=== PATIENT | female | born 1990 | race Caucasian/White ===

== ENCOUNTER 2019-06-04 07:47 | Inpatient (IN) ==
--- NOTE | 2019-06-04 08:01 | Emergency Department Note ---
Disposition Clinical Impression: Pyelonephritis Disposition: Admitted As Inpatient Condition: Fair Referrals: NONE,PCP [Primary Care Provider] - Time of Disposition: 08:45 Female Urogenital HPI - General Chief complaint: ED Urogenital-Female Stated complaint: freq urination, back pain, fever Time Seen by Provider: 06/04/19 07:56 Source: patient Mode of arrival: private vehicle Limitations: no limitations Nursing Notes Reviewed: Yes Vital Signs Reviewed: Yes - History of Present Illness HPI Narrative: Patient presents saying she is been having pain in the bilateral low back is midline for about 4 days. This is described as sharp and aching in character and not much making it better or worse. With this she has had frequent urination and is urinating in small aliquots. She denies dysuria or hematuria but she does have urgency. She has had some nausea and vomiting last 24 hours of decreased oral intake. With this she has some generalized weakness and malaise. She has a feeling of fevers and chills but has not checked her temperature. She has had occasional sweats. She denies cough, congestion, chest pain or shortness of breath. She has diarrhea or constipation. She states she has had similar pain with a remote kidney stone and also history of kidney infection in the past. Pt Subjective Complaint: dysuria, "UTI", other (Possible kidney stone) Onset (ago): day(s) (4) Severity: moderate, severe Quality: sharp, aching Duration: constant Improves with: none Worsens with: urination Urinary Symptoms: urgency, frequency, no dysuria, no hematuria, no foul smelling urine, no difficulty urinating, no flank pain : no Associated symptoms: Reports: nausea/vomiting, fever/chills, loss of appetite, weakness. Denies: abnormal vaginal discharge, abnormal vaginal bleeding, abdominal pain, headaches, , rash, seizure, shortness of breath, syncope - Related Data Home Medications Medication Instructions Recorded Confirmed No Known Home Drugs 06/04/19 06/04/19 Allergies Allergy/AdvReac Type Severity Reaction Status Date / Time Amoxicillin AdvReac Hives Verified 06/04/19 07:49 codeine AdvReac Hives Verified 06/04/19 07:49 All systems ED: reviewed and negative except as stated. Past Medical History - Past Medical History Attestation: Yes The following information was validated with the patient. Source: patient, old records reviewed, obtained from family, nursing notes reviewed Medical history: Reports: no medical history Surgical history: Reports: , cholecystectomy, herniorrhaphy Psychiatric history: Reports: anxiety, panic disorder [employer] history: Reports: bilateral tubal ligation - Social History Smoking Status: 2nd Hand Smoke Exposure Smokeless Tobacco Status: No Alcohol use: Reports: none Drug use: Reports: methamphetamine Physical Exam - General Limitations: no limitations General appearance: alert, anxious, in distress - Head Head exam: atraumatic, normocephalic, normal inspection - Eye Eye exam: Present: normal appearance, PERRL, EOMI - ENT ENT exam: normal exam, normal oropharynx, mucous membranes moist - Neck Neck exam: Present: normal inspection, full ROM, trachea midline - Chest Chest inspection: Present: normal inspection, symmetric chest wall rise - Respiratory Respiratory exam: Present: normal lung sounds bilaterally. Absent: respiratory distress, wheezes, prolonged expiratory phase - Cardiovascular Cardiovascular exam: Present: regular rate, normal rhythm, normal heart sounds - Abdominal Exam Abdominal exam: Present: soft, Non-Tender, normal bowel sounds. Absent: tenderness, distention, guarding, rebound, rigidity - Extremities Exam Extremities exam: Present: normal inspection, full ROM, normal capillary refill. Absent: tenderness, pedal edema - Expanded Lower Extremity Exam Neurovascular/Tendon exam: Present: normal capillary refill Gait: antalgic - Back Exam Back exam: Present: normal inspection, full ROM, CVA tenderness (L). Absent: tenderness, CVA tenderness (R) - Neurological Exam Neurological exam: Present: alert, oriented X3 - Psychiatric Psychiatric exam: Present: agitated, anxious - Skin Skin exam: Present: warm, dry, intact, normal color. Absent: diaphoresis, pallor Course Course Narrative: Given his reported severe pain, nausea and vomiting with tachycardia, patient is started on IV fluids and baseline laboratory and urinalysis been ordered. She will have a CT of the abdomen to evaluate for structural abnormality in receive Toradol, Haldol and Benadryl for pain and anxiolysis. 0845: Patient continues with pain, has significant leukocytosis and pyelonephritis. I recommended continuation of IV fluids and IV antibiotics on observation status. The patient is agreeable. I discussed this with Dr. Carpenter and verbal orders have been obtained for her observation. Vital Signs Temperature 98 F 06/04/19 07:50 Pulse Rate 123 06/04/19 07:50 Respiratory Rate 16 06/04/19 07:50 Blood Pressure 140/98 06/04/19 07:50 O2 Sat by Pulse Oximetry 98 06/04/19 07:50 Temperature 98 F 06/04/19 07:50 Pulse Rate 92 06/04/19 08:47 Respiratory Rate 16 06/04/19 08:47 Blood Pressure 120/75 06/04/19 08:47 O2 Sat by Pulse Oximetry 96 06/04/19 08:47 Oxygen Delivery Oxygen Delivery Room Air Urogenital-Female - Differential Diagnosis Likely: urinary tract infection, cystitis - Lab Data Lab results reviewed: Yes I reviewed the patient's lab results. Result diagrams: 06/04/19 08:16 06/04/19 08:16 Lab Results 06/04/19 06/04/19 06/04/19 Range/Units 08:00 08:00 08:00 WBC (4.3-11.1) K/mcL RBC (3.82-4.97) M/mcL Hgb (11.5-15.4) g/dL Hct (35.3-44.9) % MCV (83.0-100.0) fL MCH (28.0-33.3) pg MCHC (31.6-35.5) g/dL RDW (11.5-14.5) % Plt Count (140-400) K/mcL MPV (9.4-12.4) fL Immature Gran % (0-4) % Seg Neutrophils % % Lymphocytes % % Monocytes % % Eosinophils % % Basophils % % Neutrophils # (1.6-8.9) K/mcL Lymphocytes # (0.6-4.6) K/mcL Monocytes # (0.0-1.3) K/mcL Eosinophils # (0.0-0.6) K/mcL Basophils # (0.0-0.2) K/mcL Sodium (136-145) mEq/L Potassium (3.5-5.1) mEq/L Chloride (98-107) mEq/L Carbon Dioxide (23-29) mEq/L BUN (6-20) mg/dL Creatinine (0.60-1.20) mg/dL Est GFR ( Amer) (> 60) Est GFR (Non-Af Amer) (> 60) BUN/Creatinine Ratio (6-26) Glucose (70-105) mg/dL Calculated Osmolality (280-300) Calcium (8.6-10.3) mg/dL Urine Color Yellow (Yellow) Urine Clarity Clear (Clear) Urine pH 5.5 (5.0-8.0) pH Units Ur Specific [place] 1.025 (1.010-1.025) Urine Protein 100 H (Neg-Trace) mg/dL Urine Glucose (UA) Normal (Normal) mg/dL Urine Ketones Negative (Negative) mg/dL Urine Blood Moderate H (Negative) Urine Nitrite Negative (Negative) Urine Bilirubin Negative (Negative) Urine Urobilinogen Normal (Normal) mg/dL Ur Leukocyte Esterase Small H (Negative) Urine Microscopic RBC 5-15 H (0-3) per hpf Urine Microscopic WBC TNTC H (0-3) per hpf Ur Squamous Epith Cells Few (None-Few) per lpf Urine Bacteria Many H (None-Few) per hpf Urine Mucus Many H (Few) Ur Culture Indicated? YES A (NO) Urine Test Negative (Negative) Urine Opiates Screen Positive H (Vrysys=824) ng/mL Ur Buprenorphine Scrn Negative (Cutoff=5) ng/mL Ur Oxycodone Screen Negative (Cutoff= 100) ng/mL Ur Barbiturates Screen Negative (Knwexf=828) ng/mL Ur Phencyclidine Scrn Negative (Cutoff=25) ng/mL Ur Amphetamines Screen Positive H (Gzdjxl=1548) ng/mL U Benzodiazepines Scrn Negative (Xcfgzo=210) ng/mL Urine Cocaine Screen Negative (Cutoff= 300) ng/mL U Marijuana (THC) Screen Negative (Cutoff = 50) ng/mL Ur Drug Screen Interp See Below 06/04/19 06/04/19 Range/Units 08:16 08:16 WBC 19.7 H (4.3-11.1) K/mcL RBC 4.21 (3.82-4.97) M/mcL Hgb 13.7 (11.5-15.4) g/dL Hct 37.8 (35.3-44.9) % MCV 89.8 (83.0-100.0) fL MCH 32.5 (28.0-33.3) pg MCHC 36.2 H (31.6-35.5) g/dL RDW 12.1 (11.5-14.5) % Plt Count 243 (140-400) K/mcL MPV 10.0 (9.4-12.4) fL Immature Gran % 0.5 (0-4) % Seg Neutrophils % 84.1 % Lymphocytes % 5.1 % Monocytes % 9.8 % Eosinophils % 0.2 % Basophils % 0.3 % Neutrophils # 16.6 H (1.6-8.9) K/mcL Lymphocytes # 1.0 (0.6-4.6) K/mcL Monocytes # 1.9 H (0.0-1.3) K/mcL Eosinophils # 0.0 (0.0-0.6) K/mcL Basophils # 0.1 (0.0-0.2) K/mcL Sodium 135 L (136-145) mEq/L Potassium 3.3 L (3.5-5.1) mEq/L Chloride 100 (98-107) mEq/L Carbon Dioxide 26 (23-29) mEq/L BUN 18 (6-20) mg/dL Creatinine 1.13 (0.60-1.20) mg/dL Est GFR ( Amer) > 60 (> 60) Est GFR (Non-Af Amer) 57 L (> 60) BUN/Creatinine Ratio 16 (6-26) Glucose 169 H (70-105) mg/dL Calculated Osmolality 286 (280-300) Calcium 9.1 (8.6-10.3) mg/dL Urine Color (Yellow) Urine Clarity (Clear) Urine pH (5.0-8.0) pH Units Ur Specific [place] (1.010-1.025) Urine Protein (Neg-Trace) mg/dL Urine Glucose (UA) (Normal) mg/dL Urine Ketones (Negative) mg/dL Urine Blood (Negative) Urine Nitrite (Negative) Urine Bilirubin (Negative) Urine Urobilinogen (Normal) mg/dL Ur Leukocyte Esterase (Negative) Urine Microscopic RBC (0-3) per hpf Urine Microscopic WBC (0-3) per hpf Ur Squamous Epith Cells (None-Few) per lpf Urine Bacteria (None-Few) per hpf Urine Mucus (Few) Ur Culture Indicated? (NO) Urine Test (Negative) Urine Opiates Screen (Ygydib=982) ng/mL Ur Buprenorphine Scrn (Cutoff=5) ng/mL Ur Oxycodone Screen (Cutoff= 100) ng/mL Ur Barbiturates Screen (Rndqlr=183) ng/mL Ur Phencyclidine Scrn (Cutoff=25) ng/mL Ur Amphetamines Screen (Gwmqyk=1916) ng/mL U Benzodiazepines Scrn (Cjrirr=372) ng/mL Urine Cocaine Screen (Cutoff= 300) ng/mL U Marijuana (THC) Screen (Cutoff = 50) ng/mL Ur Drug Screen Interp - Radiology Data Radiology results reviewed: Yes I reviewed the patient's radiology results. Impressions Abdomen/Pelvis CT 06/04/19 08:34 IMPRESSION: 1. Mildly hyperdense renal pyramids, with punctate nonobstructing stone involving the upper pole of the left kidney. Currently, no evidence of ureterolithiasis or significant hydronephrosis. 2. There is mild asymmetric perinephric fat stranding on the left. This could indicate a recently passed ureteral stone or ascending urinary tract infection. 3. Incidental note is made of mild position of tubal ligation clips, which both appear to be present along the right side of the cul-de-sac D/ / Real Carnes MD / Real Carnes MD Interpreting Provider: Real Carnes MD
[2019-06-04] MEDS ORDERED: Ketorolac 30 MG/ML VIAL IVP ONE (08:02)
[2019-06-04] MEDS ORDERED: 0.9 % Sodium Chloride 1,000 ML IVC ONE (08:02)
[2019-06-04] MEDS ORDERED: Haloperidol Lactate 5 MG/ML VIAL IVP ONE (08:02)
[2019-06-04 08:07] LABS: Bilirubin,Urine Negative (Negative); Blood,Urine Moderate (Negative); Clarity,Urine Clear (Clear); Color,Urine Yellow (Yellow); Glucose,Urine (UA) Normal (Normal); Ketones,Urine Negative (Negative); Leukocyte Esterase,Urine Small (Negative); Nitrite,Urine Negative (Negative); PH,Urine 5.5 pH Units (5.0-8.0); Protein,Urine 100 mg/dL (Neg-Trace); Specific Gravity,Urine 1.025 (1.010-1.025); Urobilinogen,Urine Normal (Normal)
[2019-06-04 08:15] LABS: Bacteria,Urine Many per hpf (None-Few); Squamous Epithelial Cell,Urine Few per lpf (None-Few); WBC,Urine TNTC per hpf (0-3)
[2019-06-04 08:16] LABS: Mucus,Urine Many (Few)
[2019-06-04 08:22] LABS: Basophils # 0.1 K/mcL (0.0-0.2); Basophils % 0.3 %; Eosinophils % 0.2 %; Hematocrit 37.8 % (35.3-44.9); Hemoglobin 13.7 g/dL (11.5-15.4); Immature Granulocytes % 0.5 % (0-4); Lymphocytes % 5.1 %; Mean Corpuscular HGB Conc 36.2 g/dL (31.6-35.5); Mean Corpuscular Hemoglobin 32.5 pg (28.0-33.3); Mean Corpuscular Volume 89.8 fL (83.0-100.0); Monocytes # 1.9 K/mcL (0.0-1.3); Monocytes % 9.8 %; Neutrophils # 16.6 K/mcL (1.6-8.9); Platelet Count 243 K/mcL (140-400); Red Blood Count 4.21 M/mcL (3.82-4.97); Red Cell Distribution Width 12.1 % (11.5-14.5); Segmented Neutrophils % 84.1 %; White Blood Count 19.7 K/mcL (4.3-11.1)
[2019-06-04] MEDS ORDERED: cefTRIAXone 2,000 MG in 0.9 % Sodium Chloride Mini Bag 100 ML IVPB ONE (08:26)
[2019-06-04 08:29] LABS: Amphetamine Screen,Urine Positive ng/mL (Cutoff=1000); Barbiturate Screen,Urine Negative ng/mL (Cutoff=200); Benzodiazepines Screen,Urine Negative ng/mL (Cutoff=200); Cannabinoid Screen,Urine Negative ng/mL (Cutoff = 50); Cocaine Screen,Urine Negative ng/mL (Cutoff= 300); Opiate Screen,Urine Positive ng/mL (Cutoff=300); Phencyclidine Screen,Urine Negative ng/mL (Cutoff=25)
[2019-06-04 08:39] LABS: BUN/Creatinine Ratio 16 (6-26); Blood Urea Nitrogen 18 mg/dL (6-20); Calcium 9.1 mg/dL (8.6-10.3); Carbon Dioxide 26 mEq/L (23-29); Chloride 100 mEq/L (98-107); Glucose 169 mg/dL (70-105); Osmolality,Calculated 286 (280-300); Potassium 3.3 mEq/L (3.5-5.1); Sodium 135 mEq/L (136-145); eGFR For African Americans > 60 (> 60); eGFR For Non-African Americans 57 (> 60)
[2019-06-04] MEDS ORDERED: Ibuprofen 400 MG TABLET PO PRN (09:14)
[2019-06-04] MEDS ORDERED: Acetaminophen 325 MG TABLET PO PRN (09:14)
[2019-06-04] MEDS ORDERED: Mag Hydrox/Al Hydrox/Simeth 30 ML UDC PO PRN (09:14)
[2019-06-04] MEDS ORDERED: MOM Conc 10 ML UD.LIQ PO PRN (09:14)
[2019-06-04] MEDS ORDERED: *HR* Promethazine 25 MG/ML VIAL IVP PRN ×2 (09:14→11:54)
[2019-06-04] MEDS ORDERED: Ondansetron 4 MG/2 ML VIAL IVP PRN ×2 (09:14→11:54)
[2019-06-04] MEDS ORDERED: 0.9 % Sodium Chloride 1,000 ML IVC SCH (09:14)
[2019-06-04] MEDS ORDERED: Naloxone 0.4 MG/ML INJ IVP PRN (09:14)
[2019-06-04] MEDS ORDERED: Ketorolac 30 MG/ML VIAL IVP PRN (09:14)
[2019-06-04] MEDS ORDERED: ALPRAZolam 0.25 MG TABLET PO PRN (11:51)
--- NOTE | 2019-06-04 11:59 | Internal Med History&Physical ---
Date of Encounter: 06/04/19 Time of Encounter: 11:30 Assessment and Plan (1) Pyelonephritis Current visit: Yes Status: Acute IV Rocephin has been started. Lactobacillus will be given. Bactrim DS will be added pending urine culture final report. (2) Hypokalemia Current visit: Yes Status: Acute Likely secondary to vomiting. IV fluids with supplemental potassium have been ordered. (3) Illicit drug use Current visit: Yes Status: Acute She will be given anti-emetics and anti-anxiety medication as needed. Internal Medicine - H&P: HPI Chief complaint: Back pain, fevers, chills, vomiting Admitted From: Emergency Dept Plans for Post Hospital Care: Home History of present illness: Ms. Santos is a 29 year old female who came to emergency room stating she had 4 day history of fevers chills vomiting and urinary frequency. She was evaluated and found to have evidence of left pyelonephritis. She was admitted to [facility] floor for ongoing care needs. She states she has had several urinary tract infections in the past. She has history of kidney stones but has not had stone analysis. She denies other kidney or bladder disorders. history is pertinent otherwise for 4 sections and tubal ligation. Past Med Surg Social Fam HX - Past Medical History Medical history: no medical history Additional medical history: heart palpatations Psychiatric history: anxiety, panic disorder - Past Surgical History Surgical History: , cholecystectomy, herniorrhaphy Additional surgical history: Cysts from left wrist. cyst removed from right side of neck. tubal ligation - Social History Smoking Status: 2nd Hand Smoke Exposure Smokeless Tobacco Status: No Alcohol use: none Drug use: methamphetamine Internal Medicine - H&P: Meds No Known Home Drugs 06/04/19 [History] Allergy/AdvReac Type Severity Reaction Status Date / Time Amoxicillin AdvReac Hives Verified 06/04/19 07:49 codeine AdvReac Hives Verified 06/04/19 07:49 All Systems PM: A 10-system review of systems was performed and is negative for pertinent findings except as documented above in the HPI. Review of systems: Gen.: She states her weight has been stable for several months Cardiovascular: She denies hypertension NE heart failure angina DVT or pulmonary embolus Respiratory: She is a lifelong nonsmoker. She reports a diagnosis of asthma. She does not use home oxygen. GI: She has had cholecystectomy. 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 She does not know the seizure type and has not seen a neurologist or other physician in many years. She denies other neurologic disorders. Endocrine: She denies diabetes thyroid disease or hyperlipidemia Hematology/oncology: She denies blood disorders cancers or anemia Psychiatric: She denies anxiety depression or other mental health issues [place] skeletal: She reports having a cyst removed from her left wrist. She denies arthritis gout or other bone joint or muscle disorders - Constitutional Vitals: Temp Pulse Resp BP Pulse Ox 98.7 F 89 16 97/68 99 06/04/19 09:35 06/04/19 09:35 06/04/19 09:35 06/04/19 09:35 06/04/19 09:35 Exam: Neuro: She is a well-developed well-nourished female lying in bed who appears in mild discomfort. She is in the position under the covers and appears to have chills. HEENT: Head is atraumatic and normocephalic. Eyes: EOMI. There is no scleral icterus. Mouth: Mucosa is moist. Neck: Supple and nontender. There is no thyromegaly or adenopathy noted. Heart: Regular without murmurs gallops or ectopics Lungs: No wheezes or crackles are heard. Abdomen: Soft and nontender. No masses or guarding are noted. Extremities: She is wearing house shoes/boots which I did not remove. There is no pitting edema of her lower legs. Neurologic: Mental status: She is able to answer questions appropriately but is not conversational. She appears to be in mild discomfort and having chills. Cranial nerves: Smile is symmetric. Forehead wrinkles bilaterally. Tongue protrudes midline. EOMI. Motor: There is no pronator drift. Cerebellar: Finger to nose is intact bilaterally. Skin: Warm and dry Internal Med - H&P Results - Labs CBC & Chem 7: 06/04/19 08:16 06/04/19 08:16 Labs: Short CBC 06/04/19 Range/Units 08:16 WBC 19.7 H (4.3-11.1) K/mcL Hgb 13.7 (11.5-15.4) g/dL Hct 37.8 (35.3-44.9) % Plt Count 243 (140-400) K/mcL Neutrophils # 16.6 H (1.6-8.9) K/mcL BMP 06/04/19 08:16 Sodium 135 L Potassium 3.3 L Chloride 100 Carbon Dioxide 26 BUN 18 Creatinine 1.13 Glucose 169 H Calcium 9.1 Urine 06/04/19 Range/Units 08:00 Urine Color Yellow (Yellow) Urine Clarity Clear (Clear) Urine pH 5.5 (5.0-8.0) pH Units Ur Specific [place] 1.025 (1.010-1.025) Urine Protein 100 H (Neg-Trace) mg/dL Urine Glucose (UA) Normal (Normal) mg/dL - Impressions ITS Impressions Abdomen/Pelvis CT 06/04/19 08:34 IMPRESSION: 1. Mildly hyperdense renal pyramids, with punctate nonobstructing stone involving the upper pole of the left kidney. Currently, no evidence of ureterolithiasis or significant hydronephrosis. 2. There is mild asymmetric perinephric fat stranding on the left. This could indicate a recently passed ureteral stone or ascending urinary tract infection. 3. Incidental note is made of malposition of tubal ligation clips, which both appear to be present along the right side of the cul-de-sac. D/ / 06/04/2019 09:20:01 Real Carnes MD / claudiaay Interpreting Provider: Real Carnes MD
[2019-06-04] MEDS: Sulfamethoxazole/Trimeth DS 1 EACH TABLET PO SCH ×2 (13:00→20:30)
[2019-06-04] MEDS: 0.9 % Sodium Chloride w KCl 20 MEQ/1,000 ML MLS IVC SCH ×2 (13:01→20:30)
[2019-06-04] MEDS: Lactobacillus 1 EACH CAP.SPRINK PO SCH (20:29)
[2019-06-05] MEDS: 0.9 % Sodium Chloride w KCl 20 MEQ/1,000 ML MLS IVC SCH (03:46)
[2019-06-05 05:02] LABS: Basophils % 0.3 %; Eosinophils # 0.1 K/mcL (0.0-0.6); Eosinophils % 0.8 %; Hematocrit 30.5 % (35.3-44.9); Hemoglobin 10.6 g/dL (11.5-15.4); Immature Granulocytes % 0.8 % (0-4); Lymphocytes # 0.9 K/mcL (0.6-4.6); Lymphocytes % 8.2 %; Mean Corpuscular HGB Conc 34.8 g/dL (31.6-35.5); Mean Corpuscular Hemoglobin 31.5 pg (28.0-33.3); Mean Corpuscular Volume 90.8 fL (83.0-100.0); Mean Platelet Volume 10.5 fL (9.4-12.4); Monocytes # 1.2 K/mcL (0.0-1.3); Monocytes % 10.3 %; Neutrophils # 9.1 K/mcL (1.6-8.9); Platelet Count 158 K/mcL (140-400); Red Blood Count 3.36 M/mcL (3.82-4.97); Red Cell Distribution Width 12.5 % (11.5-14.5); Segmented Neutrophils % 79.6 %; White Blood Count 11.4 K/mcL (4.3-11.1)
[2019-06-05 05:21] LABS: Alanine Aminotransferase 14 Units/L (7-52); Albumin 2.8 g/dL (3.5-5.7); Albumin/Globulin Ratio 1.2 (1.1-2.2); Alkaline Phosphatase 78 Units/L (34-104); Aspartate Amino Transferase 15 Units/L (13-39); BUN/Creatinine Ratio 16 (6-26); Bilirubin,Total 0.5 mg/dL (0.3-1.0); Blood Urea Nitrogen 13 mg/dL (6-20); Calcium 7.7 mg/dL (8.6-10.3); Carbon Dioxide 20 mEq/L (23-29); Chloride 113 mEq/L (98-107); Globulin 2.4 g/dL (2.4-3.5); Glucose 135 mg/dL (70-105); Osmolality,Calculated 290 (280-300); Potassium 3.6 mEq/L (3.5-5.1); Sodium 139 mEq/L (136-145); Total Protein 5.2 g/dL (6.4-8.9); eGFR For African Americans > 60 (> 60); eGFR For Non-African Americans > 60 (> 60)
[2019-06-05 06:47] VITALS: BP 127/84
[2019-06-05] MEDS: Lactobacillus 1 EACH CAP.SPRINK PO SCH (08:33)
[2019-06-05] MEDS: Sulfamethoxazole/Trimeth DS 1 EACH TABLET PO SCH (08:33)
[2019-06-05] MEDS ORDERED: cefTRIAXone 2,000 MG in 0.9 % Sodium Chloride Mini Bag 100 ML IVPB SCH (09:00)
--- NOTE | 2019-06-05 09:55 | Discharge Summary ---
Orders not resulted at time of discharge: Pending orders 06/04/19 08:00 Culture,Urine [RM] Stat Date of Encounter: 06/05/19 Time of Encounter: 09:35 - Discharge Diagnosis (1) Pyelonephritis Priority: Primary Status: Acute (2) Hypokalemia Priority: Secondary Status: Resolved (3) Illicit drug use Priority: Secondary Status: Acute Hospital course: Ms. Santos is a 29 year old female who came to emergency room stating she had 4 day history of fevers chills vomiting and urinary frequency. She was evaluated and found to have evidence of left pyelonephritis. She was admitted to [facility] floor for ongoing care needs. I saw her on April 03 and performed a history and physical. She was started on IV Rocephin with lactobacillus. Oral Bactrim DS was added pending final culture report. She had fever spike to 101.5 the afternoon of June 04. When I saw her on June 05 she stated she felt better and wished to be discharged home. I explained to her I felt she needed additional IV antibiotics. She was adamant she was leaving. I told her she would have to sign out AMA. She agreed to this. She will be given prescriptions for Omnicef and Septra DS with lactobacillus for 7 days. Hemoglobin decreased to 10.6 on June 05. I told her she was anemic but she refused to stay for further evaluation. - Time Spent with Patient Total time spent providing and/or coordinating discharge services: - Discharge Medications Prescriptions: New Sulfamethoxazole/Trimeth DS [Bactrim Ds] 1 each PO BID #14 tablet Lactobacillus [Culturelle] 1 each PO BID #14 cap.sprink Cefdinir [Omnicef] 300 mg PO DAILY #7 capsule Home Medications: Cefdinir [Omnicef] 300 mg PO DAILY #7 capsule 06/05/19 [Rx] Lactobacillus [Culturelle] 1 each PO BID #14 cap.sprink 06/05/19 [Rx] Sulfamethoxazole/Trimeth DS [Bactrim Ds] 1 each PO BID #14 tablet 06/05/19 [Rx] Allergies/Adverse Reactions: Allergy/AdvReac Type Severity Reaction Status Date / Time Amoxicillin AdvReac Hives Verified 06/04/19 07:49 codeine AdvReac Hives Verified 06/04/19 07:49 Date of admission: 06/04/19 11:52 Primary care physician: PCP NONE - Constitutional Vitals: Temp Pulse Resp BP Pulse Ox 99.0 F 92 20 127/84 99 06/05/19 06:43 06/05/19 06:43 06/05/19 06:43 06/05/19 06:43 06/05/19 06:43 - Patient Status Disposition: Left Against Medical Advice Condition: Fair - Discharge Instructions Forms: ED Satisfaction Letter
[2019-06-05 10:52] LABS: Hepatitis B Surface Antigen Nonreactive (Nonreactive)
[2019-06-05 11:21] LABS: Hepatitis B Core IgM Nonreactive (Nonreactive)
[2019-06-05 11:22] LABS: Hepatitis C Virus Antibody Nonreactive (Nonreactive)
[2019-06-05 11:23] LABS: Hepatitis A Antibody IgM Nonreactive (Nonreactive)
== END 2019-06-05 11:15 | disposition left against medical advice (07) | DRG 690 ==
LOC: INPPIK 07:47 → EMEROOPIK 07:47 → INPPIK 09:20
PROVIDERS: ADMIT Internal Medicine; ATTEND Internal Medicine